=== PATIENT | male | born 1990 | race Caucasian/White ===

== ENCOUNTER 2024-01-03 16:12 | Inpatient (IN) | payer SELFPAY ==
[2024-01-03] VITALS (30 sets, daily range): BP systolic 43–262; BP diastolic 22–128; PULSE 56–151; RESP 14–52; TEMP 36.83628–36.8628; O2SAT 76–100
[~2024-01-03] VITALS: Ht 167.6 cm; Wt 90.3 kg
[2024-01-03] MEDS ORDERED: PHENYLEPHRINE 100 MG in DEXT 5% WATER 240 ML IV SCH (17:00)
[2024-01-03] MEDS: METOPROLOL TARTRATE 5MG/5ML VIAL IV NR (17:07)
[2024-01-03 17:27] LABS: RED BLOOD CELL COUNT 4.52 mill/uL (4.7-6.1); WHITE BLOOD COUNT 22.4 x1000/uL (4.5-11.0)
[2024-01-03 17:28] LABS: HEMATOCRIT. 42.8 % (42.0-52.0); HEMOGLOBIN. 13.1 g/dL (14.0-18.0); MEAN CORPUSCULAR HEMOGLOBIN 29.1 pg (28.0-32.0); MEAN CORPUSCULAR HGB CONC 30.7 g/dL (31.0-37.0); MEAN CORPUSCULAR VOLUME 94.7 fL (80.0-94.0); MEAN PLATELET VOLUME 10.7 fl (7.4-10.4); PLATELET 203 x1000/uL (130-400); RED CELL DISTRIBUTION WIDTH 17.1 % (11.6-14.6)
[2024-01-03 17:31] LABS: DIFFERENTIAL COMMENT 1
[2024-01-03] MEDS: PHENYLEPHRINE 100 MG in DEXT 5% WATER 240 ML IV PRN (17:40)
[2024-01-03 17:42] LABS: BG BASE EXCESS -26.1 mmol/L (-2.0-3.0); BG CARBOXYHEMOGLOBIN 0.5 % (0.5-1.5); BG DEOXYHEMOGLOBIN 1.3 % (0.0-5.0); BG FRACTION INSPIRED OXYGEN 100; BG HCO3 ACT 8.4 mmol/L (21.0-28.0); BG METHEMOGLOBIN 0.5 % (0.5-1.5); BG OXYGEN SATURATION 98.7 % (94.0-98.0); BG OXYHEMOGLOBIN 97.7 % (94.0-98.0); BG PCO2 52.7 mmHg (35.0-48.0); BG PO2 235.3 mmHg (83.0-108.0); BG SAMPLE SITE RIGHT RADIAL; BG TOTAL HEMOGLOBIN 14.1 g/dL (13.5-17.5); BG VENT MODE VENT - AC
[2024-01-03 17:46] LABS: CARBON DIOXIDE 11 mEq/L (21-32); CHLORIDE 97 mEq/L (98-107); POTASSIUM 4.2 mEq/L (3.5-5.1); SODIUM 140 mEq/L (136-145)
[2024-01-03 17:47] LABS: CALCIUM 11.7 mg/dL (8.7-10.4)
[2024-01-03 17:52] LABS: GLUCOSE 124 mg/dL (70-105); UREA NITROGEN BLOOD 69 mg/dL (9-23)
[2024-01-03 17:53] LABS: ALANINE AMINOTRANSFERASE 19 IU/L (10-49); ASPARTATE AMINOTRANSFERASE 37 IU/L (<34)
[2024-01-03 17:54] LABS: ALBUMIN 3.2 g/dL (3.2-4.8); BILIRUBIN DIRECT 0.1 mg/dL (<=3.0); BILIRUBIN TOTAL 0.3 mg/dL (0.1-1.0)
[2024-01-03 17:58] LABS: ETHANOL BLOOD < 10 mg/dL (<10)
[2024-01-03 18:00] LABS: CREATININE 15.9 mg/dL (0.6-1.3); TROPONIN I HIGH SENSITIVITY 103 ng/L (3.0-53)
[2024-01-03] MEDS ORDERED: PIPERACILLIN/TAZO 3.375G/50ML 50 ML IV SCH (18:00)
[2024-01-03] MEDS: SODIUM BICARBONATE 8.4% 50MEQ/50ML SYR IV ONE (18:15)
[2024-01-03 18:26] LABS: LACTIC ACID 17.9 mmol/L (0.4-2.0)
[2024-01-03 18:28] LABS: NUCLEATED RED BLOOD CELLS 4 /100 WBC; PLATELET ESTIMATE NORMAL
[2024-01-03] MEDS ORDERED: EPINEPHRINE 10 MG in SODIUM CHLORIDE 0.9% 240 ML IV STA (18:29)
[2024-01-03] MEDS ORDERED: CEFTRIAXONE 2GM/50ML 50 ML IV ONE (18:30)
[2024-01-03] MEDS ORDERED: VANCOMYCIN 1.5GM/250ML 250 ML IV SCH (18:30)
[2024-01-03] MEDS: KETAMINE HCL 100 MG in SODIUM CHLORIDE 0.9% 100 ML IV PRN (18:37)
[2024-01-03] MEDS: SODIUM BICARBONATE 150 MEQ in DEXTROSE 5% WATER 850 ML IV SCH (19:23)
[2024-01-03] MEDS: EPINEPHRINE 10 MG in SODIUM CHLORIDE 0.9% 240 ML IV PRN (19:23)
[2024-01-03 20:12] LABS: CREATINE KINASE 153 IU/L (46-171)
[2024-01-03] MEDS: METRONIDAZOLE 500 MG PREMIX 100 ML IV ONE (20:27)
[2024-01-03] MEDS ORDERED: PANTOPRAZOLE SODIUM 40 MG/VIAL IV SCH (21:00)
[2024-01-03] MEDS ORDERED: MIDAZOLAM 100MG/100ML PMX 100 ML IV PRN (21:30)
[2024-01-03] MEDS ORDERED: LORAZEPAM 2MG/ML INJ IV PRN (21:30)
[2024-01-03] MEDS ORDERED: FENTANYL 2500MCG/250ML PMX 250 ML IV PRN (21:30)
[2024-01-03] MEDS: LORAZEPAM 2MG/ML INJ IV NR (21:43)
[2024-01-03] MEDS: PROPOFOL 10MG/ML 100ML 100 ML IV PRN (21:48)
[2024-01-03 22:19] LABS: BG BASE EXCESS -17.5 mmol/L (-2.0-3.0); BG CARBOXYHEMOGLOBIN 0.2 % (0.5-1.5); BG DEOXYHEMOGLOBIN 10.6 % (0.0-5.0); BG FRACTION INSPIRED OXYGEN 80; BG METHEMOGLOBIN 0.1 % (0.5-1.5); BG OXYGEN SATURATION 89.4 % (94.0-98.0); BG OXYHEMOGLOBIN 89.1 % (94.0-98.0); BG PCO2 48.5 mmHg (35.0-48.0); BG PH 7.046 (7.350-7.450); BG PO2 77.2 mmHg (83.0-108.0); BG SAMPLE SITE LEFT BRACHIAL; BG VENT MODE VENT - AC
[2024-01-03] MEDS: MIDAZOLAM 100MG/100ML PMX 100 ML IV PRN (22:29)
[2024-01-03] MEDS: VASOPRESSIN 20 UNIT in SODIUM CHLORIDE 0.9% 99 ML IV PRN (22:30)
[2024-01-04] VITALS (10 sets, daily range): BP systolic 49–159; BP diastolic 13–55; PULSE 0–124; RESP 10–62; TEMP 36.61404; O2SAT 78
[2024-01-04] MEDS ORDERED: EPINEPHRINE 10 MG in SODIUM CHLORIDE 0.9% 240 ML IV PRN (00:45)
[2024-01-04] MEDS ORDERED: KCL 20MEQ/100ML PREMIX 100 ML IV NR (01:15)
[2024-01-04 01:16] LABS: CHLORIDE 97 mEq/L (98-107); POTASSIUM 3.8 mEq/L (3.5-5.1); SODIUM 143 mEq/L (136-145)
[2024-01-04 01:17] LABS: CALCIUM 8.3 mg/dL (8.7-10.4); CARBON DIOXIDE 12 mEq/L (21-32)
[2024-01-04 01:22] LABS: UREA NITROGEN BLOOD 69 mg/dL (9-23)
[2024-01-04 01:24] LABS: ALBUMIN 1.7 g/dL (3.2-4.8); BILIRUBIN TOTAL 0.7 mg/dL (0.1-1.0)
[2024-01-04 01:48] LABS: CREATININE 12.9 mg/dL (0.6-1.3); GLUCOSE 340 mg/dL (70-105)
[2024-01-04 01:52] LABS: PROTEIN TOTAL 3.3 g/dL (6.0-8.3)
[2024-01-04 01:53] LABS: ASPARTATE AMINOTRANSFERASE 2320 IU/L (<34)
[2024-01-04 01:54] LABS: ALANINE AMINOTRANSFERASE 1409 IU/L (10-49)
== END 2024-01-04 03:51 | DRG 720 ==
LOC: ER 16:12 → MICUSO 16:47 → EDBD 16:47 → EDBEDREQTM 17:22 → EDBEDREQ 17:22
PROVIDERS: ADMIT Hospitalist; ATTEND Hospitalist
PROC: 5A12012 Performance of Cardiac Output, Single, Manual (ICD-10-PCS; principal; 2024-01-03)
PROC: 5A1935Z Respiratory Ventilation, Less than 24 Consecutive Hours (ICD-10-PCS; 2024-01-03)
PROC: 0BH17EZ Insertion of Endotracheal Airway into Trachea, Via Natural or Artificial Opening (ICD-10-PCS; 2024-01-03)
DX: A41.9 Sepsis, unspecified organism (principal); J80 Acute respiratory distress syndrome; I46.9 Cardiac arrest, cause unspecified; R65.21 Severe sepsis with septic shock; G92.8 Other toxic encephalopathy; J18.9 Pneumonia, unspecified organism; N18.6 End stage renal disease; K92.2 Gastrointestinal hemorrhage, unspecified; I21.A1 Myocardial infarction type 2; E87.20 Acidosis, unspecified; G40.909 Epilepsy, unspecified, not intractable, without status epilepticus; R00.1 Bradycardia, unspecified; R40.2430 Glasgow coma scale score 3-8, unspecified time; E83.39 Other disorders of phosphorus metabolism; E83.52 Hypercalcemia; Z99.2 Dependence on renal dialysis
CPT/HCPCS: 31500; 36415; 36600; 71045; 80048; 80053; 80076; 80320; 82375; 82550; 82805; 82962; 83605; 83735; 83880; 84100; 84145; 84484; 85025; 86850; 86900; 87077; 87186; 92950; 93005; 94003; 99291; J0696; J2060; J2250; J2704; J3480; J3490; J7050; J7060; J7070; G0480